=== PATIENT | male | born 1940 | race Caucasian/White ===

== ENCOUNTER 2023-10-08 23:19 | Inpatient (IN) | payer MEDICARE, OTHER ==
[~2023-10-08] VITALS: Ht 165.1 cm; Wt 75.6 kg
[2023-10-08 23:32] VITALS: PULSE 48; RESP 19
[2023-10-08] MEDS: ETOMIDATE 2MG/ML 10ML VIAL IV ONE (23:41)
[2023-10-08] MEDS: SODIUM CHLORIDE 0.9% 1,000 ML IV ONE (23:42)
[2023-10-08 23:43] LABS: BASOPHILS % 0.2 % (0.0-2.0); EOSINOPHILS % 0.2 % (0.0-5.0); HEMATOCRIT. 44.2 % (42.0-52.0); HEMOGLOBIN. 14.4 g/dL (14.0-18.0); MEAN CORPUSCULAR HEMOGLOBIN 31.6 pg (28.0-32.0); MEAN CORPUSCULAR HGB CONC 32.7 g/dL (31.0-37.0); MEAN CORPUSCULAR VOLUME 96.7 fL (80.0-94.0); MEAN PLATELET VOLUME 8.3 fl (7.4-10.4); MONOCYTES % 6.3 % (2.0-8.0); NEUTROPHILS % 68.3 % (40.0-76.0); PLATELET 181 x1000/uL (130-400); RED BLOOD CELL COUNT 4.57 mill/uL (4.7-6.1); RED CELL DISTRIBUTION WIDTH 14.8 % (11.6-14.6); WHITE BLOOD COUNT 13.9 x1000/uL (4.5-11.0)
[2023-10-08] MEDS ORDERED: EPINEPHRINE 5 MG in SODIUM CHLORIDE 0.9% 245 ML IV PRN (23:45)
[2023-10-08 23:54] LABS: PARTIAL THROMBOPLASTIN TIME 31.5 sec (23.4-31.0); PROTHROMBIN TIME 10.8 sec (9.6-11.0)
[2023-10-09] VITALS (65 sets, daily range): BP systolic 122–222; BP diastolic 40–69; PULSE 44–80; RESP 16–24; TEMP 98.5–98.6
[2023-10-09 00:04] LABS: LACTIC ACID 4.8 mmol/L (0.4-2.0)
[2023-10-09 00:06] LABS: ALANINE AMINOTRANSFERASE 84 IU/L (10-49); ALBUMIN 3.7 g/dL (3.2-4.8); ASPARTATE AMINOTRANSFERASE 81 IU/L (<34); BILIRUBIN TOTAL 1.1 mg/dL (0.1-1.0); CALCIUM 7.4 mg/dL (8.7-10.4); CARBON DIOXIDE 19 mEq/L (21-32); CHLORIDE 100 mEq/L (98-107); CREATININE 1.1 mg/dL (0.6-1.3); GLUCOSE 217 mg/dL (70-105); POTASSIUM 4.6 mEq/L (3.5-5.1); PROTEIN TOTAL 6.7 g/dL (6.0-8.3); SODIUM 130 mEq/L (136-145); UREA NITROGEN BLOOD 17 mg/dL (9-23)
[2023-10-09] MEDS: EPINEPHRINE 5 MG in SODIUM CHLORIDE 0.9% 245 ML IV PRN (00:12)
[2023-10-09 00:18] LABS: ETHANOL BLOOD < 10 mg/dL (<10); TROPONIN I HIGH SENSITIVITY 94 ng/L (3.0-53)
[2023-10-09] MEDS: PROPOFOL 10MG/ML 100ML 100 ML IV ONE (00:26)
[2023-10-09 01:10] LABS: BG BASE EXCESS -7.5 mmol/L (-2.0-2.0); BG CARBOXYHEMOGLOBIN 0.5 % (0.5-1.5); BG DEOXYHEMOGLOBIN 0.4 % (0.0-5.0); BG FRACTION INSPIRED OXYGEN 100; BG HCO3 ACT 21.8 mmol/L (22.0-26.0); BG METHEMOGLOBIN 0.2 % (0.0-1.5); BG OXYGEN SATURATION 99.6 % (92.0-98.5); BG OXYHEMOGLOBIN 98.9 % (94.0-97.0); BG PCO2 61.6 mmHg (35.0-45.0); BG PH 7.167 (7.350-7.450); BG PO2 302.7 mmHg (75.0-100.0); BG SAMPLE SITE RIGHT RADIAL; BG TOTAL HEMOGLOBIN 13.5 g/dL (12.0-18.0); BG VENT MODE VENT - AC
[2023-10-09] MEDS: VANCOMYCIN 1.5GM/250ML 250 ML IV SCH (02:25)
[2023-10-09] MEDS ORDERED: SODIUM CHLORIDE 0.9% 1,000 ML IV NR (02:30)
[2023-10-09] MEDS: PROPOFOL 10MG/ML 100ML 100 ML IV PRN (05:03)
[2023-10-09] MEDS: PIPERACILLIN/TAZO 3.375G/50ML 50 ML IV SCH (07:10)
[2023-10-09] MEDS: IOHEXOL-350 100 ML BOTTLE ONE (07:35)
[2023-10-09] MEDS ORDERED: ACETAMINOPHEN 325MG TABLET PO PRN (09:00)
[2023-10-09] MEDS ORDERED: EPINEPHRINE 10 MG in SODIUM CHLORIDE 0.9% 250 ML IV PRN (09:00)
[2023-10-09 09:01] LABS: BG BASE EXCESS 0.7 mmol/L (-2.0-2.0); BG CARBOXYHEMOGLOBIN 0.5 % (0.5-1.5); BG DEOXYHEMOGLOBIN 0.2 % (0.0-5.0); BG FRACTION INSPIRED OXYGEN 100; BG HCO3 ACT 24.7 mmol/L (22.0-26.0); BG METHEMOGLOBIN 0.4 % (0.0-1.5); BG OXYGEN SATURATION 99.8 % (92.0-98.5); BG OXYHEMOGLOBIN 98.9 % (94.0-97.0); BG PCO2 37.5 mmHg (35.0-45.0); BG PH 7.436 (7.350-7.450); BG PO2 442.1 mmHg (75.0-100.0); BG SAMPLE SITE LEFT RADIAL; BG TOTAL HEMOGLOBIN 14.4 g/dL (12.0-18.0); BG TOTAL RESPIRATORY RATE 16 b/min; BG VENT MODE VENT - AC
[2023-10-09] MEDS: PANTOPRAZOLE SODIUM 40 MG/VIAL IV SCH (10:21)
[2023-10-09] MEDS: DOPAMINE 800MG PREMIX (DOUBLE) 250 ML IV PRN (11:48)
[2023-10-09] MEDS: BLOOD SUGAR DIAGNOSTIC STRIP TEST SCH (12:00)
[2023-10-09] MEDS ORDERED: DEXTROSE 50% WATER 50ML SYRINGE IV PRN (12:30)
[2023-10-09] MEDS: PIPERACILLIN/TAZO 3.375G/50ML IV SCH (14:17)
[2023-10-09] MEDS: MIDAZOLAM 100MG/100ML PMX 100 ML IV PRN (14:23)
[2023-10-09] MEDS: FENTANYL 2500MCG/250ML PMX 250 ML IV PRN (14:24)
[2023-10-09] MEDS: INSULIN LISPRO 100 UNITS/ML SUBCUT SCH (17:00)
[2023-10-10] VITALS (93 sets, daily range): BP systolic 88–138; BP diastolic 40–75; PULSE 55–75; RESP 16–21; TEMP 97.4–99
[2023-10-10 05:17] LABS: BASOPHILS % 0.7 % (0.0-2.0); EOSINOPHILS % 0.1 % (0.0-5.0); HEMATOCRIT. 38.4 % (42.0-52.0); HEMOGLOBIN. 12.7 g/dL (14.0-18.0); LYMPHOCYTES % 13.1 % (20.0-50.0); MEAN CORPUSCULAR HGB CONC 33.1 g/dL (31.0-37.0); MEAN CORPUSCULAR VOLUME 93.8 fL (80.0-94.0); MEAN PLATELET VOLUME 8.3 fl (7.4-10.4); MONOCYTES % 7.7 % (2.0-8.0); NEUTROPHILS % 78.4 % (40.0-76.0); PLATELET 176 x1000/uL (130-400); RED BLOOD CELL COUNT 4.09 mill/uL (4.7-6.1); RED CELL DISTRIBUTION WIDTH 14.8 % (11.6-14.6); WHITE BLOOD COUNT 13.7 x1000/uL (4.5-11.0)
[2023-10-10 05:49] LABS: CALCIUM 8.2 mg/dL (8.7-10.4); CREATININE 1.2 mg/dL (0.6-1.3); POTASSIUM 3.4 mEq/L (3.5-5.1)
[2023-10-10] MEDS: ENOXAPARIN 40MG/0.4ML SYR SUBCUT SCH (08:28)
[2023-10-10 09:08] LABS: BG BASE EXCESS 0.9 mmol/L (-2.0-2.0); BG CARBOXYHEMOGLOBIN 0.3 % (0.5-1.5); BG DEOXYHEMOGLOBIN 0.8 % (0.0-5.0); BG FRACTION INSPIRED OXYGEN 60; BG HCO3 ACT 25.5 mmol/L (22.0-26.0); BG METHEMOGLOBIN 0.3 % (0.0-1.5); BG OXYGEN SATURATION 99.2 % (92.0-98.5); BG OXYHEMOGLOBIN 98.6 % (94.0-97.0); BG PCO2 40.5 mmHg (35.0-45.0); BG PH 7.417 (7.350-7.450); BG PO2 218.2 mmHg (75.0-100.0); BG SAMPLE SITE RIGHT RADIAL; BG TOTAL HEMOGLOBIN 13.7 g/dL (12.0-18.0); BG TOTAL RESPIRATORY RATE 16 b/min; BG VENT MODE VENT - AC
[2023-10-10] MEDS: POTASSIUM CHLORIDE 20MEQ TABLET SR PO NR (10:16)
[2023-10-10] MEDS: DEXT 5%/0.45% NACL 1000ML 1,000 ML IV SCH (13:20)
[2023-10-11] VITALS (109 sets, daily range): BP systolic 89–173; BP diastolic 42–101; PULSE 60–87; RESP 13–21; TEMP 98–98.6
[2023-10-11 05:44] LABS: BASOPHILS % 0.2 % (0.0-2.0); EOSINOPHILS % 0.4 % (0.0-5.0); HEMATOCRIT. 34.8 % (42.0-52.0); HEMOGLOBIN. 11.7 g/dL (14.0-18.0); LYMPHOCYTES % 12.1 % (20.0-50.0); MEAN CORPUSCULAR HEMOGLOBIN 31.9 pg (28.0-32.0); MEAN CORPUSCULAR HGB CONC 33.6 g/dL (31.0-37.0); MEAN CORPUSCULAR VOLUME 95.1 fL (80.0-94.0); MEAN PLATELET VOLUME 9.1 fl (7.4-10.4); MONOCYTES % 8.1 % (2.0-8.0); NEUTROPHILS % 79.2 % (40.0-76.0); PLATELET 165 x1000/uL (130-400); RED BLOOD CELL COUNT 3.66 mill/uL (4.7-6.1); RED CELL DISTRIBUTION WIDTH 14.7 % (11.6-14.6)
[2023-10-11 06:03] LABS: CALCIUM 8.2 mg/dL (8.7-10.4); CREATININE 1.2 mg/dL (0.6-1.3); POTASSIUM 3.3 mEq/L (3.5-5.1)
[2023-10-11] MEDS ORDERED: FLUO10TA34 MT (12:29)
[2023-10-11] MEDS ORDERED: FURO40TA5 PO (12:29)
[2023-10-11] MEDS ORDERED: POTA-354 MT (12:29)
[2023-10-11] MEDS ORDERED: BRIM15DR2 EACHEYE (12:29)
[2023-10-11] MEDS ORDERED: AZOPT EACHEYE (12:29)
[2023-10-11] MEDS ORDERED: CARV25TA47 MT (12:29)
[2023-10-11] MEDS ORDERED: DAPA10TA MT (12:29)
[2023-10-11] MEDS: POTASSIUM CHLORIDE 20MEQ/PACKET PO NR (13:47)
[2023-10-12] VITALS (72 sets, daily range): BP systolic 120–191; BP diastolic 47–80; PULSE 55–94; RESP 13–22; TEMP 97.5–99
[2023-10-12] MEDS: DEXMEDETOMIDINE 400 MCG/100 ML 100 ML IV PRN (10:48)
[2023-10-12] MEDS: HYDRALAZINE 20MG/ML VIAL IV PRN (12:48)
[2023-10-12 13:10] LABS: CALCIUM 8.1 mg/dL (8.7-10.4); CARBON DIOXIDE 25 mEq/L (21-32); CHLORIDE 105 mEq/L (98-107); CREATININE 0.9 mg/dL (0.6-1.3); GLUCOSE 127 mg/dL (70-105); POTASSIUM 3.6 mEq/L (3.5-5.1); SODIUM 136 mEq/L (136-145); UREA NITROGEN BLOOD 17 mg/dL (9-23)
[2023-10-13] VITALS (97 sets, daily range): BP systolic 104–181; BP diastolic 45–124; PULSE 46–106; RESP 13–32; TEMP 98.2–98.6
[2023-10-13 05:37] LABS: BASOPHILS % 0.3 % (0.0-2.0); EOSINOPHILS % 0.5 % (0.0-5.0); HEMOGLOBIN. 12.2 g/dL (14.0-18.0); LYMPHOCYTES % 13.2 % (20.0-50.0); MEAN CORPUSCULAR HEMOGLOBIN 32.1 pg (28.0-32.0); MEAN CORPUSCULAR HGB CONC 33.1 g/dL (31.0-37.0); MEAN PLATELET VOLUME 8.7 fl (7.4-10.4); MONOCYTES % 11.1 % (2.0-8.0); NEUTROPHILS % 74.9 % (40.0-76.0); PLATELET 203 x1000/uL (130-400); RED BLOOD CELL COUNT 3.81 mill/uL (4.7-6.1); RED CELL DISTRIBUTION WIDTH 14.9 % (11.6-14.6)
[2023-10-13 05:54] LABS: CALCIUM 8.7 mg/dL (8.7-10.4); CARBON DIOXIDE 22 mEq/L (21-32); CHLORIDE 107 mEq/L (98-107); GLUCOSE 123 mg/dL (70-105); SODIUM 137 mEq/L (136-145); UREA NITROGEN BLOOD 20 mg/dL (9-23)
[2023-10-13 10:04] LABS: BG BASE EXCESS -2.5 mmol/L (-2.0-2.0); BG CARBOXYHEMOGLOBIN 0.3 % (0.5-1.5); BG DEOXYHEMOGLOBIN 1.1 % (0.0-5.0); BG FRACTION INSPIRED OXYGEN 40; BG HCO3 ACT 23.6 mmol/L (22.0-26.0); BG METHEMOGLOBIN 0.4 % (0.0-1.5); BG OXYGEN SATURATION 98.9 % (92.0-98.5); BG OXYHEMOGLOBIN 98.2 % (94.0-97.0); BG PH 7.328 (7.350-7.450); BG PO2 153.8 mmHg (75.0-100.0); BG SAMPLE SITE RIGHT RADIAL; BG TOTAL HEMOGLOBIN 12.8 g/dL (12.0-18.0); BG VENT MODE VENT - CPAP
[2023-10-13] MEDS: ACETAMINOPHEN 325MG TABLET PO PRN (10:59)
[2023-10-13] MEDS: TAMSULOSIN HCL 0.4MG SR CAPSULE PO SCH (20:32)
[2023-10-14] VITALS (104 sets, daily range): BP systolic 106–234; BP diastolic 42–127; PULSE 46–104; RESP 14–27; TEMP 98.2–98.7
[2023-10-14 13:30] LABS: BG BASE EXCESS -2.3 mmol/L (-2.0-2.0); BG CARBOXYHEMOGLOBIN 0.3 % (0.5-1.5); BG DEOXYHEMOGLOBIN 1.1 % (0.0-5.0); BG FRACTION INSPIRED OXYGEN 40; BG METHEMOGLOBIN 0.3 % (0.0-1.5); BG OXYGEN SATURATION 98.9 % (92.0-98.5); BG OXYHEMOGLOBIN 98.3 % (94.0-97.0); BG PCO2 36.5 mmHg (35.0-45.0); BG PH 7.398 (7.350-7.450); BG PO2 133.4 mmHg (75.0-100.0); BG SAMPLE SITE RIGHT RADIAL; BG TOTAL HEMOGLOBIN 12.6 g/dL (12.0-18.0); BG TOTAL RESPIRATORY RATE 25 b/min; BG VENT MODE VENT - SIMV
[2023-10-14] MEDS: DOCUSATE SODIUM SUGAR FREE 100MG/10ML UDC NG SCH (18:27)
[2023-10-15] VITALS (110 sets, daily range): BP systolic 85–175; BP diastolic 37–111; PULSE 55–124; RESP 15–34; TEMP 97–98.4
[2023-10-15 07:17] LABS: HEMATOCRIT 31.7 % (42.0-52.0); HEMOGLOBIN 10.7 g/dL (14.0-18.0)
[2023-10-15] MEDS ORDERED: DOCUSATE SODIUM SUGAR FREE 100MG/10ML UDC NG SCH (09:00)
[2023-10-15] MEDS: LACTULOSE 20G/30ML UDC PO SCH (14:24)
[2023-10-15 17:35] LABS: CLARITY URINE CLOUDY (CLEAR); COLOR URINE RED (YELLOW); GLUCOSE URINE NEGATIVE (NEGATIVE); KETONES URINE NEGATIVE (NEGATIVE); LEUKOCYTE ESTERASE URINE 3+ (NEGATIVE); NITRITE URINE POSITIVE (NEGATIVE); OCCULT BLOOD URINE 1+ (NEGATIVE); PROTEIN URINE 1+ (NEGATIVE); SPECIFIC GRAVITY URINE 1.024 (1.005-1.030)
[2023-10-15 18:05] LABS: BACTERIA URINE 2+; RBC URINE 50-100 /hpf (0-2); SQUAMOUS EPITHELIAL CELL URINE 2+ /lpf (RARE/1+)
[2023-10-16] VITALS (93 sets, daily range): BP systolic 98–194; BP diastolic 49–100; PULSE 49–118; RESP 0–27; TEMP 97–99.1
[2023-10-16 05:22] LABS: BASOPHILS % 0.3 % (0.0-2.0); EOSINOPHILS % 0.3 % (0.0-5.0); HEMATOCRIT. 31.2 % (42.0-52.0); HEMOGLOBIN. 10.3 g/dL (14.0-18.0); LYMPHOCYTES % 15.2 % (20.0-50.0); MEAN CORPUSCULAR HGB CONC 33.1 g/dL (31.0-37.0); MEAN CORPUSCULAR VOLUME 96.9 fL (80.0-94.0); MEAN PLATELET VOLUME 8.2 fl (7.4-10.4); MONOCYTES % 12.9 % (2.0-8.0); NEUTROPHILS % 71.3 % (40.0-76.0); PLATELET 253 x1000/uL (130-400); RED BLOOD CELL COUNT 3.22 mill/uL (4.7-6.1); WHITE BLOOD COUNT 6.6 x1000/uL (4.5-11.0)
[2023-10-16 05:49] LABS: CALCIUM 8.1 mg/dL (8.7-10.4); CARBON DIOXIDE 22 mEq/L (21-32); CHLORIDE 109 mEq/L (98-107); CREATININE 0.9 mg/dL (0.6-1.3); GLUCOSE 148 mg/dL (70-105); POTASSIUM 3.7 mEq/L (3.5-5.1); SODIUM 137 mEq/L (136-145); UREA NITROGEN BLOOD 16 mg/dL (9-23)
[2023-10-16 05:58] LABS: INR 0.9; PROTHROMBIN TIME 10.5 sec (9.6-11.0)
[2023-10-16 09:08] LABS: BG BASE EXCESS -2.7 mmol/L (-2.0-2.0); BG CARBOXYHEMOGLOBIN 0.3 % (0.5-1.5); BG DEOXYHEMOGLOBIN 11.1 % (0.0-5.0); BG FRACTION INSPIRED OXYGEN 40; BG HCO3 ACT 23.7 mmol/L (22.0-26.0); BG METHEMOGLOBIN 0.3 % (0.0-1.5); BG OXYGEN SATURATION 88.8 % (92.0-98.5); BG OXYHEMOGLOBIN 88.3 % (94.0-97.0); BG PCO2 47.9 mmHg (35.0-45.0); BG PH 7.312 (7.350-7.450); BG PO2 58.7 mmHg (75.0-100.0); BG SAMPLE SITE RIGHT RADIAL; BG TOTAL HEMOGLOBIN 10.7 g/dL (12.0-18.0); BG VENT MODE VENT - SIMV
[2023-10-16 12:26] LABS: BG CARBOXYHEMOGLOBIN 0.3 % (0.5-1.5); BG DEOXYHEMOGLOBIN 1.1 % (0.0-5.0); BG FRACTION INSPIRED OXYGEN 50; BG HCO3 ACT 23.6 mmol/L (22.0-26.0); BG METHEMOGLOBIN 0.3 % (0.0-1.5); BG OXYGEN SATURATION 98.9 % (92.0-98.5); BG OXYHEMOGLOBIN 98.3 % (94.0-97.0); BG PCO2 43.6 mmHg (35.0-45.0); BG PH 7.351 (7.350-7.450); BG PO2 173.3 mmHg (75.0-100.0); BG SAMPLE SITE RIGHT RADIAL; BG TOTAL HEMOGLOBIN 11.4 g/dL (12.0-18.0); BG VENT MODE VENT - AC/PRVC
[2023-10-16] MEDS: FUROSEMIDE 40MG/4ML VIAL IVP SCH (13:12)
[2023-10-16] MEDS: CEFTRIAXONE 1GM/50ML 50 ML IV SCH (13:12)
[2023-10-16] MEDS: IPRATROPIUM/ALBUTEROL 0.5-3(2.5)MG/3ML NEB HHN SCH (14:23)
[2023-10-17] VITALS (120 sets, daily range): BP systolic 73–242; BP diastolic 44–195; PULSE 48–149; RESP 12–32; TEMP 97–98.4
[2023-10-17 05:13] LABS: BASOPHILS % 0.2 % (0.0-2.0); EOSINOPHILS % 0.6 % (0.0-5.0); HEMATOCRIT. 30.7 % (42.0-52.0); HEMOGLOBIN. 10.4 g/dL (14.0-18.0); LYMPHOCYTES % 21.6 % (20.0-50.0); MEAN CORPUSCULAR HEMOGLOBIN 32.4 pg (28.0-32.0); MEAN CORPUSCULAR VOLUME 95.4 fL (80.0-94.0); MEAN PLATELET VOLUME 8.2 fl (7.4-10.4); MONOCYTES % 12.9 % (2.0-8.0); NEUTROPHILS % 64.7 % (40.0-76.0); PLATELET 243 x1000/uL (130-400); RED BLOOD CELL COUNT 3.22 mill/uL (4.7-6.1); RED CELL DISTRIBUTION WIDTH 15.1 % (11.6-14.6); WHITE BLOOD COUNT 6.8 x1000/uL (4.5-11.0)
[2023-10-17 05:34] LABS: CALCIUM 8.3 mg/dL (8.7-10.4); CREATININE 1.2 mg/dL (0.6-1.3); POTASSIUM 4.4 mEq/L (3.5-5.1)
[2023-10-17 08:59] LABS: BG BASE EXCESS -2.9 mmol/L (-2.0-2.0); BG CARBOXYHEMOGLOBIN 0.3 % (0.5-1.5); BG DEOXYHEMOGLOBIN 0.9 % (0.0-5.0); BG FRACTION INSPIRED OXYGEN 50; BG HCO3 ACT 22.3 mmol/L (22.0-26.0); BG METHEMOGLOBIN 0.3 % (0.0-1.5); BG OXYGEN SATURATION 99.1 % (92.0-98.5); BG OXYHEMOGLOBIN 98.5 % (94.0-97.0); BG PCO2 40.2 mmHg (35.0-45.0); BG PH 7.362 (7.350-7.450); BG PO2 188.8 mmHg (75.0-100.0); BG SAMPLE SITE RIGHT RADIAL; BG TOTAL HEMOGLOBIN 10.6 g/dL (12.0-18.0); BG VENT MODE VENT - AC/PRVC
[2023-10-17] MEDS: METHYLPREDNISOLONE SOD SUCC 40MG/ML (ACT-O-VIAL) IV SCH (12:13)
[2023-10-17] MEDS: PROPOFOL 10MG/ML 100ML 100 ML IV PRN (13:01)
[2023-10-17 14:10] LABS: BG BASE EXCESS -7.8 mmol/L (-2.0-2.0); BG CARBOXYHEMOGLOBIN 0.3 % (0.5-1.5); BG DEOXYHEMOGLOBIN 0.4 % (0.0-5.0); BG FRACTION INSPIRED OXYGEN 100; BG HCO3 ACT 20.2 mmol/L (22.0-26.0); BG METHEMOGLOBIN 0.2 % (0.0-1.5); BG OXYGEN SATURATION 99.6 % (92.0-98.5); BG OXYHEMOGLOBIN 99.1 % (94.0-97.0); BG PCO2 51.4 mmHg (35.0-45.0); BG PH 7.212 (7.350-7.450); BG PO2 398.6 mmHg (75.0-100.0); BG SAMPLE SITE RIGHT RADIAL; BG TOTAL HEMOGLOBIN 12.9 g/dL (12.0-18.0); BG VENT MODE VENT - AC/PRVC
[2023-10-17 18:20] LABS: BG BASE EXCESS -5.2 mmol/L (-2.0-2.0); BG CARBOXYHEMOGLOBIN 0.3 % (0.5-1.5); BG DEOXYHEMOGLOBIN 1.6 % (0.0-5.0); BG FRACTION INSPIRED OXYGEN 50; BG HCO3 ACT 21.1 mmol/L (22.0-26.0); BG METHEMOGLOBIN 0.4 % (0.0-1.5); BG OXYGEN SATURATION 98.4 % (92.0-98.5); BG OXYHEMOGLOBIN 97.7 % (94.0-97.0); BG PH 7.299 (7.350-7.450); BG PO2 133.5 mmHg (75.0-100.0); BG SAMPLE SITE RIGHT RADIAL; BG TOTAL HEMOGLOBIN 11.9 g/dL (12.0-18.0); BG TOTAL RESPIRATORY RATE 28 b/min; BG VENT MODE VENT - AC/PRVC
[2023-10-17] MEDS: NOREPINEPHRINE 8MG/250ML PMX 250 ML IV PRN (20:45)
[2023-10-18] VITALS (107 sets, daily range): BP systolic 98–183; BP diastolic 43–129; PULSE 63–112; RESP 16–28; TEMP 98–98.8
[2023-10-18 05:45] LABS: BASOPHILS % 0.1 % (0.0-2.0); HEMATOCRIT. 28.6 % (42.0-52.0); HEMOGLOBIN. 9.6 g/dL (14.0-18.0); LYMPHOCYTES % 9.4 % (20.0-50.0); MEAN CORPUSCULAR HEMOGLOBIN 32.5 pg (28.0-32.0); MEAN CORPUSCULAR HGB CONC 33.7 g/dL (31.0-37.0); MEAN CORPUSCULAR VOLUME 96.4 fL (80.0-94.0); MEAN PLATELET VOLUME 8.3 fl (7.4-10.4); MONOCYTES % 6.2 % (2.0-8.0); NEUTROPHILS % 84.3 % (40.0-76.0); PLATELET 298 x1000/uL (130-400); RED BLOOD CELL COUNT 2.96 mill/uL (4.7-6.1); WHITE BLOOD COUNT 8.5 x1000/uL (4.5-11.0)
[2023-10-18 06:10] LABS: CALCIUM 8.2 mg/dL (8.7-10.4); CARBON DIOXIDE 22 mEq/L (21-32); CHLORIDE 107 mEq/L (98-107); CREATININE 1.4 mg/dL (0.6-1.3); GLUCOSE 147 mg/dL (70-105); PHOSPHORUS 3.1 mg/dL (2.5-4.9); POTASSIUM 4.4 mEq/L (3.5-5.1); SODIUM 134 mEq/L (136-145); TRIGLYCERIDE 110 mg/dL (0-150); UREA NITROGEN BLOOD 27 mg/dL (9-23)
[2023-10-18 09:46] LABS: BG CARBOXYHEMOGLOBIN 0.3 % (0.5-1.5); BG DEOXYHEMOGLOBIN 1.1 % (0.0-5.0); BG FRACTION INSPIRED OXYGEN 50; BG HCO3 ACT 19.7 mmol/L (22.0-26.0); BG METHEMOGLOBIN 0.3 % (0.0-1.5); BG OXYGEN SATURATION 98.9 % (92.0-98.5); BG OXYHEMOGLOBIN 98.3 % (94.0-97.0); BG PCO2 35.3 mmHg (35.0-45.0); BG PH 7.365 (7.350-7.450); BG PO2 153.7 mmHg (75.0-100.0); BG SAMPLE SITE RIGHT RADIAL; BG TOTAL HEMOGLOBIN 10.9 g/dL (12.0-18.0); BG TOTAL RESPIRATORY RATE 20 b/min; BG VENT MODE PRVC
[2023-10-19] VITALS (99 sets, daily range): BP systolic 97–173; BP diastolic 49–111; PULSE 67–102; RESP 11–28; TEMP 98–99.1
[2023-10-19 06:21] LABS: HEMATOCRIT. 27.7 % (42.0-52.0); HEMOGLOBIN. 9.3 g/dL (14.0-18.0); MEAN CORPUSCULAR HEMOGLOBIN 32.3 pg (28.0-32.0); MEAN CORPUSCULAR HGB CONC 33.7 g/dL (31.0-37.0); MEAN CORPUSCULAR VOLUME 95.9 fL (80.0-94.0); PLATELET 356 x1000/uL (130-400); RED BLOOD CELL COUNT 2.89 mill/uL (4.7-6.1); WHITE BLOOD COUNT 8.6 x1000/uL (4.5-11.0)
[2023-10-19 06:29] LABS: DIFFERENTIAL COMMENT 1
[2023-10-19 06:30] LABS: CALCIUM 8.1 mg/dL (8.7-10.4); CARBON DIOXIDE 26 mEq/L (21-32); CHLORIDE 109 mEq/L (98-107); CREATININE 1.1 mg/dL (0.6-1.3); GLUCOSE 161 mg/dL (70-105); POTASSIUM 4.3 mEq/L (3.5-5.1); SODIUM 141 mEq/L (136-145); TRIGLYCERIDE 109 mg/dL (0-150); UREA NITROGEN BLOOD 27 mg/dL (9-23)
[2023-10-19 09:37] LABS: BG BASE EXCESS -2.8 mmol/L (-2.0-2.0); BG CARBOXYHEMOGLOBIN 0.3 % (0.5-1.5); BG DEOXYHEMOGLOBIN 1.1 % (0.0-5.0); BG FRACTION INSPIRED OXYGEN 50; BG HCO3 ACT 21.6 mmol/L (22.0-26.0); BG METHEMOGLOBIN 0.3 % (0.0-1.5); BG OXYGEN SATURATION 98.9 % (92.0-98.5); BG OXYHEMOGLOBIN 98.3 % (94.0-97.0); BG PCO2 36.5 mmHg (35.0-45.0); BG PH 7.391 (7.350-7.450); BG PO2 144.4 mmHg (75.0-100.0); BG SAMPLE SITE RIGHT RADIAL; BG TOTAL HEMOGLOBIN 11.7 g/dL (12.0-18.0); BG VENT MODE PRVC-AC
[2023-10-19] MEDS: PROPOFOL 10MG/ML 100ML 100 ML IV PRN (09:43)
[2023-10-19 10:04] LABS: PLATELET ESTIMATE NORMAL
[2023-10-20] VITALS (102 sets, daily range): BP systolic 80–188; BP diastolic 41–147; PULSE 63–109; RESP 9–26; TEMP 98–98.9
[2023-10-20] MEDS: PROPOFOL 10MG/ML 100ML 100 ML IV PRN (07:39)
[2023-10-20] MEDS: AMLODIPINE 10MG TABLET PO SCH (09:32)
[2023-10-20] MEDS ORDERED: PROPOFOL 10MG/ML 100ML 100 ML IV PRN (21:00)
[2023-10-21] VITALS (81 sets, daily range): BP systolic 132–153; BP diastolic 48–122; PULSE 58–83; RESP 9–24; TEMP 97.6–99.1
[2023-10-21] MEDS: IPRATROPIUM/ALBUTEROL 0.5-3(2.5)MG/3ML NEB HHN PRN (00:27)
[2023-10-21 05:10] LABS: HEMATOCRIT. 29.4 % (42.0-52.0); HEMOGLOBIN. 9.9 g/dL (14.0-18.0); MEAN CORPUSCULAR HEMOGLOBIN 31.9 pg (28.0-32.0); MEAN CORPUSCULAR HGB CONC 33.7 g/dL (31.0-37.0); MEAN CORPUSCULAR VOLUME 94.6 fL (80.0-94.0); MEAN PLATELET VOLUME 7.9 fl (7.4-10.4); PLATELET 440 x1000/uL (130-400); RED BLOOD CELL COUNT 3.11 mill/uL (4.7-6.1); RED CELL DISTRIBUTION WIDTH 15.3 % (11.6-14.6); WHITE BLOOD COUNT 8.5 x1000/uL (4.5-11.0)
[2023-10-21 05:14] LABS: CARBON DIOXIDE 27 mEq/L (21-32); CHLORIDE 108 mEq/L (98-107); POTASSIUM 4.7 mEq/L (3.5-5.1); SODIUM 142 mEq/L (136-145)
[2023-10-21 05:15] LABS: CALCIUM 8.1 mg/dL (8.7-10.4); CREATININE 0.9 mg/dL (0.6-1.3); GLUCOSE 146 mg/dL (70-105); PHOSPHORUS 3.3 mg/dL (2.5-4.9); TRIGLYCERIDE 126 mg/dL (0-150); UREA NITROGEN BLOOD 37 mg/dL (9-23)
[2023-10-21 06:43] LABS: DIFFERENTIAL COMMENT 1
[2023-10-21 08:26] LABS: BG BASE EXCESS 2.5 mmol/L (-2.0-2.0); BG CARBOXYHEMOGLOBIN 0.3 % (0.5-1.5); BG DEOXYHEMOGLOBIN 1.2 % (0.0-5.0); BG FRACTION INSPIRED OXYGEN 50; BG HCO3 ACT 25.5 mmol/L (22.0-26.0); BG METHEMOGLOBIN 0.4 % (0.0-1.5); BG OXYGEN SATURATION 98.8 % (92.0-98.5); BG OXYHEMOGLOBIN 98.1 % (94.0-97.0); BG PCO2 33.4 mmHg (35.0-45.0); BG SAMPLE SITE RIGHT RADIAL; BG TOTAL HEMOGLOBIN 10.5 g/dL (12.0-18.0); BG VENT MODE VENT - AC/PRVC
[2023-10-21 16:48] LABS: PLATELET ESTIMATE SLIGHTLY INCREASED
[2023-10-21 16:49] LABS: ANISOCYTOSIS 1+
[2023-10-21] MEDS: PROPOFOL 10MG/ML 100ML 100 ML IV PRN (23:40)
[2023-10-22] VITALS (91 sets, daily range): BP systolic 128–169; BP diastolic 46–82; PULSE 50–108; RESP 8–37; TEMP 97.6–98.8
[2023-10-23] VITALS (83 sets, daily range): BP systolic 126–171; BP diastolic 47–121; PULSE 52–90; RESP 13–28; TEMP 97.3–99.7
[2023-10-23] MEDS: PROPOFOL 10MG/ML 100ML 100 ML IV PRN (01:43)
[2023-10-23] MEDS: HYDROCODONE/ACETAMINOPHEN 7.5/325MG TABLET PO NR (17:16)
[2023-10-23 17:43] LABS: HEMATOCRIT. 32.7 % (42.0-52.0); HEMOGLOBIN. 10.6 g/dL (14.0-18.0); MEAN CORPUSCULAR HEMOGLOBIN 31.2 pg (28.0-32.0); MEAN CORPUSCULAR HGB CONC 32.6 g/dL (31.0-37.0); MEAN CORPUSCULAR VOLUME 95.7 fL (80.0-94.0); MEAN PLATELET VOLUME 8.1 fl (7.4-10.4); PLATELET 489 x1000/uL (130-400); RED BLOOD CELL COUNT 3.41 mill/uL (4.7-6.1); RED CELL DISTRIBUTION WIDTH 15.1 % (11.6-14.6); WHITE BLOOD COUNT 14.3 x1000/uL (4.5-11.0)
[2023-10-23 17:45] LABS: DIFFERENTIAL COMMENT 1
[2023-10-23 18:03] LABS: CARBON DIOXIDE 26 mEq/L (21-32); CHLORIDE 107 mEq/L (98-107); GLUCOSE 148 mg/dL (70-105); POTASSIUM 3.7 mEq/L (3.5-5.1); SODIUM 143 mEq/L (136-145); UREA NITROGEN BLOOD 40 mg/dL (9-23)
[2023-10-23 18:30] LABS: PLATELET ESTIMATE INCREASED
[2023-10-24] VITALS (35 sets, daily range): BP systolic 91–203; BP diastolic 32–150; PULSE 59–109; RESP 17–30; TEMP 97.8–98.7
[2023-10-24 05:26] LABS: HEMATOCRIT. 31.2 % (42.0-52.0); HEMOGLOBIN. 10.4 g/dL (14.0-18.0); MEAN CORPUSCULAR HGB CONC 33.3 g/dL (31.0-37.0); MEAN CORPUSCULAR VOLUME 95.9 fL (80.0-94.0); MEAN PLATELET VOLUME 7.9 fl (7.4-10.4); PLATELET 430 x1000/uL (130-400); RED BLOOD CELL COUNT 3.25 mill/uL (4.7-6.1); RED CELL DISTRIBUTION WIDTH 14.9 % (11.6-14.6); WHITE BLOOD COUNT 11.5 x1000/uL (4.5-11.0)
[2023-10-24 05:40] LABS: ALANINE AMINOTRANSFERASE 63 IU/L (10-49); ALBUMIN 3.4 g/dL (3.2-4.8); ASPARTATE AMINOTRANSFERASE 36 IU/L (<34); CALCIUM 7.9 mg/dL (8.7-10.4); CARBON DIOXIDE 27 mEq/L (21-32); CHLORIDE 108 mEq/L (98-107); CREATININE 0.9 mg/dL (0.6-1.3); GLUCOSE 158 mg/dL (70-105); POTASSIUM 3.7 mEq/L (3.5-5.1); PROTEIN TOTAL 5.7 g/dL (6.0-8.3); SODIUM 143 mEq/L (136-145); UREA NITROGEN BLOOD 40 mg/dL (9-23)
[2023-10-24 07:20] LABS: DIFFERENTIAL COMMENT 1
[2023-10-24] MEDS: HYDRALAZINE HCL 100MG TABLET PO NR (10:05)
[2023-10-24] MEDS ORDERED: HEPARIN 1000 UNITS/ML 10ML ONE ×2 (11:24→12:38)
[2023-10-24 11:25] LABS: CLARITY URINE CLOUDY (CLEAR); COLOR URINE YELLOW (YELLOW); GLUCOSE URINE NEGATIVE (NEGATIVE); KETONES URINE NEGATIVE (NEGATIVE); LEUKOCYTE ESTERASE URINE 2+ (NEGATIVE); NITRITE URINE NEGATIVE (NEGATIVE); OCCULT BLOOD URINE 3+ (NEGATIVE); PROTEIN URINE TRACE (NEGATIVE)
[2023-10-24] MEDS ORDERED: LIDOCAINE HCL 1% 20ML VIAL (Pyxis) INJ ONE (11:25)
[2023-10-24] MEDS ORDERED: IODIXANOL 320MG/ML 100 ML BOTTLE IV ONE (11:25)
[2023-10-24] MEDS ORDERED: DIPHENHYDRAMINE 50MG/ML VIAL ONE (11:26)
[2023-10-24] MEDS ORDERED: FENTANYL CITRATE/PF 50MCG/ML 2ML VIAL ONE ×2 (11:27→12:29)
[2023-10-24] MEDS ORDERED: MIDAZOLAM HCL 2 MG/2 ML VIAL ONE ×2 (11:27→12:30)
[2023-10-24 11:41] LABS: BACTERIA URINE 1+; SQUAMOUS EPITHELIAL CELL URINE NONE SEEN /lpf (RARE/1+); YEAST URINE NONE SEEN
[2023-10-24] MEDS ORDERED: ATROPINE SULFATE 1MG/10ML SYR ONE (12:26)
[2023-10-24] MEDS ORDERED: ASPIRIN 325MG TABLET ONE (13:02)
[2023-10-24] MEDS ORDERED: CLOPIDOGREL 75MG TABLET ONE (13:02)
[2023-10-24] MEDS ORDERED: ATROPINE SULFATE 1MG/10ML SYR IV PRN (13:45)
[2023-10-24] MEDS ORDERED: ACETAMINOPHEN 325MG TABLET PO PRN (13:45)
[2023-10-24] MEDS: HYDRALAZINE 20MG/ML VIAL IV PRN (14:34)
[2023-10-24] MEDS ORDERED: NALOXONE HCL 0.4MG/ML VIAL IV PRN (15:00)
[2023-10-24] MEDS: HYDROCODONE/ACETAMINOPHEN 5/325MG TABLET PO PRN (15:12)
[2023-10-24] MEDS ORDERED: HYDRALAZINE HCL 100MG TABLET PO SCH (21:00)
[2023-10-24] MEDS: HYDRALAZINE HCL 50MG TABLET PO SCH (21:59)
[2023-10-25] VITALS (22 sets, daily range): BP systolic 124–174; BP diastolic 49–118; PULSE 66–94; RESP 17–32; TEMP 97.6–98.5
[2023-10-25 00:18] LABS: PLATELET ESTIMATE INCREASED
[2023-10-25 07:43] LABS: HEMATOCRIT. 32.5 % (42.0-52.0); HEMOGLOBIN. 10.9 g/dL (14.0-18.0); MEAN CORPUSCULAR HEMOGLOBIN 31.3 pg (28.0-32.0); MEAN CORPUSCULAR HGB CONC 33.4 g/dL (31.0-37.0); MEAN CORPUSCULAR VOLUME 93.6 fL (80.0-94.0); MEAN PLATELET VOLUME 8.2 fl (7.4-10.4); PLATELET 452 x1000/uL (130-400); RED BLOOD CELL COUNT 3.47 mill/uL (4.7-6.1); RED CELL DISTRIBUTION WIDTH 15.1 % (11.6-14.6); WHITE BLOOD COUNT 13.1 x1000/uL (4.5-11.0)
[2023-10-25 08:10] LABS: CALCIUM 8.2 mg/dL (8.7-10.4); CARBON DIOXIDE 26 mEq/L (21-32); CHLORIDE 108 mEq/L (98-107); CREATININE 0.8 mg/dL (0.6-1.3); GLUCOSE 157 mg/dL (70-105); POTASSIUM 3.8 mEq/L (3.5-5.1); SODIUM 142 mEq/L (136-145); UREA NITROGEN BLOOD 32 mg/dL (9-23)
[2023-10-25 08:16] LABS: DIFFERENTIAL COMMENT 1
[2023-10-25] MEDS: CLOPIDOGREL 75MG TABLET PO SCH (09:00)
[2023-10-25] MEDS: ASPIRIN 81MG TABLET PO SCH (09:59)
[2023-10-25] MEDS: HYDRALAZINE HCL 100MG TABLET PO SCH (14:00)
[2023-10-25 16:31] LABS: ANISOCYTOSIS 1+; PLATELET ESTIMATE INCREASED
[2023-10-25] MEDS: METOCLOPRAMIDE HCL 10MG/2ML VIAL IV SCH (18:09)
[2023-10-26] VITALS (21 sets, daily range): BP systolic 123–154; BP diastolic 48–124; PULSE 62–117; RESP 15–28; TEMP 96.8–97.5
[2023-10-26 07:25] LABS: HEMATOCRIT. 30.1 % (42.0-52.0); HEMOGLOBIN. 10.1 g/dL (14.0-18.0); MEAN CORPUSCULAR HEMOGLOBIN 31.3 pg (28.0-32.0); MEAN CORPUSCULAR HGB CONC 33.5 g/dL (31.0-37.0); MEAN CORPUSCULAR VOLUME 93.5 fL (80.0-94.0); MEAN PLATELET VOLUME 8.1 fl (7.4-10.4); PLATELET 396 x1000/uL (130-400); RED BLOOD CELL COUNT 3.22 mill/uL (4.7-6.1); RED CELL DISTRIBUTION WIDTH 14.7 % (11.6-14.6); WHITE BLOOD COUNT 12.7 x1000/uL (4.5-11.0)
[2023-10-26 07:26] LABS: DIFFERENTIAL COMMENT 1
[2023-10-26 07:48] LABS: CALCIUM 8.4 mg/dL (8.7-10.4); CARBON DIOXIDE 27 mEq/L (21-32); CHLORIDE 109 mEq/L (98-107); CREATININE 0.8 mg/dL (0.6-1.3); GLUCOSE 149 mg/dL (70-105); POTASSIUM 3.9 mEq/L (3.5-5.1); SODIUM 143 mEq/L (136-145); UREA NITROGEN BLOOD 36 mg/dL (9-23)
[2023-10-26] MEDS: RISPERIDONE 0.5MG TABLET PO SCH (11:28)
[2023-10-26 15:56] LABS: BG CARBOXYHEMOGLOBIN 0.3 % (0.5-1.5); BG FRACTION INSPIRED OXYGEN 40; BG HCO3 ACT 26.8 mmol/L (22.0-26.0); BG METHEMOGLOBIN 0.3 % (0.0-1.5); BG OXYHEMOGLOBIN 98.4 % (94.0-97.0); BG PCO2 30.2 mmHg (35.0-45.0); BG PH 7.566 (7.350-7.450); BG PO2 179.6 mmHg (75.0-100.0); BG SAMPLE SITE RIGHT RADIAL; BG TOTAL HEMOGLOBIN 11.3 g/dL (12.0-18.0); BG VENT MODE VENT - AC
[2023-10-26 16:12] LABS: PLATELET ESTIMATE NORMAL
[2023-10-27] VITALS (17 sets, daily range): BP systolic 114–164; BP diastolic 46–94; PULSE 64–94; RESP 17–34; TEMP 97.2–98.5
[2023-10-27 07:11] LABS: CALCIUM 8.7 mg/dL (8.7-10.4); CARBON DIOXIDE 27 mEq/L (21-32); CHLORIDE 109 mEq/L (98-107); CREATININE 0.8 mg/dL (0.6-1.3); GLUCOSE 161 mg/dL (70-105); POTASSIUM 3.8 mEq/L (3.5-5.1); SODIUM 144 mEq/L (136-145); UREA NITROGEN BLOOD 34 mg/dL (9-23)
[2023-10-27 07:13] LABS: HEMATOCRIT. 30.7 % (42.0-52.0); HEMOGLOBIN. 10.2 g/dL (14.0-18.0); MEAN CORPUSCULAR HEMOGLOBIN 31.4 pg (28.0-32.0); MEAN CORPUSCULAR HGB CONC 33.3 g/dL (31.0-37.0); MEAN CORPUSCULAR VOLUME 94.4 fL (80.0-94.0); MEAN PLATELET VOLUME 8.6 fl (7.4-10.4); PLATELET 416 x1000/uL (130-400); RED BLOOD CELL COUNT 3.26 mill/uL (4.7-6.1); RED CELL DISTRIBUTION WIDTH 14.6 % (11.6-14.6); WHITE BLOOD COUNT 15.3 x1000/uL (4.5-11.0)
[2023-10-27 07:21] LABS: DIFFERENTIAL COMMENT 1
[2023-10-27 14:51] LABS: PLATELET ESTIMATE INCREASED
[2023-10-27] MEDS ORDERED: BISACODYL 10MG SUPP PR PRN (17:30)
[2023-10-27] MEDS: LACTULOSE 20G/30ML UDC PO NR (18:35)
[2023-10-27] MEDS: METOCLOPRAMIDE HCL 10MG/2ML VIAL IV SCH (18:35)
[2023-10-27] MEDS ORDERED: LACTULOSE 20G/30ML UDC PO PRN (21:00)
[2023-10-28] VITALS (17 sets, daily range): BP systolic 112–140; BP diastolic 44–70; PULSE 58–95; RESP 17–27; TEMP 97–97.7
[2023-10-28 06:49] LABS: HEMATOCRIT. 27.7 % (42.0-52.0); HEMOGLOBIN. 9.3 g/dL (14.0-18.0); MEAN CORPUSCULAR HEMOGLOBIN 31.6 pg (28.0-32.0); MEAN CORPUSCULAR HGB CONC 33.7 g/dL (31.0-37.0); MEAN CORPUSCULAR VOLUME 93.7 fL (80.0-94.0); MEAN PLATELET VOLUME 8.3 fl (7.4-10.4); PLATELET 349 x1000/uL (130-400); RED BLOOD CELL COUNT 2.96 mill/uL (4.7-6.1); RED CELL DISTRIBUTION WIDTH 14.8 % (11.6-14.6)
[2023-10-28 07:23] LABS: CALCIUM 8.4 mg/dL (8.7-10.4); CARBON DIOXIDE 25 mEq/L (21-32); CHLORIDE 109 mEq/L (98-107); CREATININE 0.9 mg/dL (0.6-1.3); GLUCOSE 202 mg/dL (70-105); POTASSIUM 3.6 mEq/L (3.5-5.1); SODIUM 142 mEq/L (136-145); UREA NITROGEN BLOOD 42 mg/dL (9-23)
[2023-10-28 08:34] LABS: DIFFERENTIAL COMMENT 1
[2023-10-28] MEDS: DOCUSATE SODIUM SUGAR FREE 100MG/10ML UDC NG SCH (09:57)
[2023-10-28 19:22] LABS: PLATELET ESTIMATE NORMAL
[2023-10-28] MEDS: METOCLOPRAMIDE HCL 10MG/2ML VIAL IV SCH (19:42)
[2023-10-28] MEDS: ONDANSETRON HCL 4MG/2ML INJ IV PRN (21:57)
[2023-10-29] VITALS (21 sets, daily range): BP systolic 87–143; BP diastolic 50–97; PULSE 83–136; RESP 22–35; TEMP 97.6–98.8
[2023-10-29 06:30] LABS: HEMATOCRIT. 30.7 % (42.0-52.0); HEMOGLOBIN. 10.2 g/dL (14.0-18.0); MEAN CORPUSCULAR HEMOGLOBIN 31.2 pg (28.0-32.0); MEAN CORPUSCULAR HGB CONC 33.1 g/dL (31.0-37.0); MEAN CORPUSCULAR VOLUME 94.2 fL (80.0-94.0); MEAN PLATELET VOLUME 8.2 fl (7.4-10.4); PLATELET 406 x1000/uL (130-400); RED BLOOD CELL COUNT 3.26 mill/uL (4.7-6.1); WHITE BLOOD COUNT 16.2 x1000/uL (4.5-11.0)
[2023-10-29 06:38] LABS: DIFFERENTIAL COMMENT 1
[2023-10-29 06:59] LABS: CALCIUM 8.3 mg/dL (8.7-10.4); CARBON DIOXIDE 27 mEq/L (21-32); CHLORIDE 108 mEq/L (98-107); CREATININE 0.8 mg/dL (0.6-1.3); GLUCOSE 173 mg/dL (70-105); SODIUM 143 mEq/L (136-145); UREA NITROGEN BLOOD 33 mg/dL (9-23)
[2023-10-29] MEDS ORDERED: METOPROLOL TARTRATE 5MG/5ML VIAL IV NR (11:15)
[2023-10-29] MEDS ORDERED: CEFEPIME 2GM IN DEXT 5% 100ML IV SCH (16:15)
[2023-10-29] MEDS ORDERED: CEFEPIME 1GM/50ML 50 ML IV SCH (17:30)
[2023-10-29 17:51] LABS: PLATELET ESTIMATE SLIGHTLY INCREASED
[2023-10-29] MEDS: CEFEPIME 1GM/50ML 50 ML IV SCH (22:20)
[2023-10-29] MEDS: METHYLPREDNISOLONE SOD SUCC 40MG/ML (ACT-O-VIAL) IV SCH (22:21)
[2023-10-29] MEDS: RISPERIDONE 0.5MG TABLET PO SCH (22:22)
[2023-10-30] VITALS (22 sets, daily range): BP systolic 102–148; BP diastolic 45–73; PULSE 63–102; RESP 19–28; TEMP 97.6–99.2
[2023-10-30 06:04] LABS: HEMOGLOBIN. 9.3 g/dL (14.0-18.0); MEAN CORPUSCULAR HEMOGLOBIN 31.6 pg (28.0-32.0); MEAN CORPUSCULAR HGB CONC 33.2 g/dL (31.0-37.0); MEAN CORPUSCULAR VOLUME 95.2 fL (80.0-94.0); MEAN PLATELET VOLUME 8.5 fl (7.4-10.4); PLATELET 332 x1000/uL (130-400); RED BLOOD CELL COUNT 2.94 mill/uL (4.7-6.1); WHITE BLOOD COUNT 15.6 x1000/uL (4.5-11.0)
[2023-10-30 06:27] LABS: CALCIUM 7.8 mg/dL (8.7-10.4); CARBON DIOXIDE 25 mEq/L (21-32); CHLORIDE 112 mEq/L (98-107); CREATININE 0.8 mg/dL (0.6-1.3); GLUCOSE 196 mg/dL (70-105); POTASSIUM 4.2 mEq/L (3.5-5.1); SODIUM 144 mEq/L (136-145); UREA NITROGEN BLOOD 30 mg/dL (9-23)
[2023-10-30 07:06] LABS: DIFFERENTIAL COMMENT 1
[2023-10-30 14:21] LABS: BG BASE EXCESS 3.7 mmol/L (-2.0-2.0); BG CARBOXYHEMOGLOBIN 0.3 % (0.5-1.5); BG DEOXYHEMOGLOBIN 1.4 % (0.0-5.0); BG FRACTION INSPIRED OXYGEN 40; BG HCO3 ACT 27.7 mmol/L (22.0-26.0); BG METHEMOGLOBIN 0.2 % (0.0-1.5); BG OXYGEN SATURATION 98.6 % (92.0-98.5); BG OXYHEMOGLOBIN 98.1 % (94.0-97.0); BG PH 7.459 (7.350-7.450); BG PO2 159.8 mmHg (75.0-100.0); BG SAMPLE SITE RIGHT RADIAL; BG TOTAL HEMOGLOBIN 11.3 g/dL (12.0-18.0); BG VENT MODE VENT - SIMV
[2023-10-30 16:15] LABS: PLATELET ESTIMATE NORMAL
[2023-10-30] MEDS ORDERED: CEFEPIME 2GM IN DEXT 5% 100ML IV SCH (17:15)
[2023-10-30] MEDS: CEFEPIME 2GM/100ML 100 ML IV SCH (18:36)
[2023-10-31] VITALS (19 sets, daily range): BP systolic 112–150; BP diastolic 49–71; PULSE 73–102; RESP 16–29; TEMP 97.4–97.8; O2SAT 95
[2023-10-31 07:34] LABS: CALCIUM 7.9 mg/dL (8.7-10.4); CARBON DIOXIDE 26 mEq/L (21-32); CHLORIDE 111 mEq/L (98-107); CREATININE 0.9 mg/dL (0.6-1.3); GLUCOSE 193 mg/dL (70-105); SODIUM 144 mEq/L (136-145); UREA NITROGEN BLOOD 30 mg/dL (9-23)
[2023-10-31 08:31] LABS: HEMATOCRIT. 29.2 % (42.0-52.0); HEMOGLOBIN. 9.5 g/dL (14.0-18.0); MEAN CORPUSCULAR HEMOGLOBIN 31.1 pg (28.0-32.0); MEAN CORPUSCULAR HGB CONC 32.6 g/dL (31.0-37.0); MEAN CORPUSCULAR VOLUME 95.3 fL (80.0-94.0); PLATELET 322 x1000/uL (130-400); RED BLOOD CELL COUNT 3.06 mill/uL (4.7-6.1); RED CELL DISTRIBUTION WIDTH 14.8 % (11.6-14.6)
[2023-10-31 08:41] LABS: DIFFERENTIAL COMMENT 1
[2023-10-31 11:50] LABS: BG BASE EXCESS 3.8 mmol/L (-2.0-2.0); BG CARBOXYHEMOGLOBIN 0.3 % (0.5-1.5); BG DEOXYHEMOGLOBIN 1.4 % (0.0-5.0); BG FRACTION INSPIRED OXYGEN 35; BG HCO3 ACT 27.5 mmol/L (22.0-26.0); BG METHEMOGLOBIN 0.2 % (0.0-1.5); BG OXYGEN SATURATION 98.6 % (92.0-98.5); BG OXYHEMOGLOBIN 98.1 % (94.0-97.0); BG PCO2 38.3 mmHg (35.0-45.0); BG PH 7.474 (7.350-7.450); BG PO2 130.4 mmHg (75.0-100.0); BG SAMPLE SITE RIGHT RADIAL; BG TOTAL HEMOGLOBIN 11.5 g/dL (12.0-18.0); BG VENT MODE VENT - CPAP
[2023-10-31 21:17] LABS: PLATELET ESTIMATE NORMAL
== END 2023-10-31 20:00 | DRG 4 ==
LOC: ER 23:19 → MICUNO 10-09 03:53 → EDBEDREQ 10-09 04:05 → EDBEDREQTM 10-09 04:05 → 5EST 10-24 16:22
PROVIDERS: ADMIT Internal Medicine; ATTEND Internal Medicine
PROC: 5A1955Z Respiratory Ventilation, Greater than 96 Consecutive Hours (ICD-10-PCS; 2023-10-08)
PROC: 0BH17EZ Insertion of Endotracheal Airway into Trachea, Via Natural or Artificial Opening (ICD-10-PCS; 2023-10-08)
PROC: 05HM33Z Insertion of Infusion Device into Right Internal Jugular Vein, Percutaneous Approach (ICD-10-PCS; 2023-10-08)
PROC: B543ZZA Ultrasonography of Right Jugular Veins, Guidance (ICD-10-PCS; 2023-10-08)
PROC: 0B110F4 Bypass Trachea to Cutaneous with Tracheostomy Device, Open Approach (ICD-10-PCS; 2023-10-22)
PROC: 027036Z Dilation of Coronary Artery, One Artery with Three Drug-eluting Intraluminal Devices, Percutaneous Approach (ICD-10-PCS; principal; 2023-10-24)
PROC: 4A023N7 Measurement of Cardiac Sampling and Pressure, Left Heart, Percutaneous Approach (ICD-10-PCS; 2023-10-24)
PROC: B211YZZ Fluoroscopy of Multiple Coronary Arteries using Other Contrast (ICD-10-PCS; 2023-10-24)
DX: A41.9 Sepsis, unspecified organism (principal); I46.9 Cardiac arrest, cause unspecified; J96.21 Acute and chronic respiratory failure with hypoxia; I21.4 Non-ST elevation (NSTEMI) myocardial infarction; R57.9 Shock, unspecified; E87.1 Hypo-osmolality and hyponatremia; D53.9 Nutritional anemia, unspecified; E11.9 Type 2 diabetes mellitus without complications; S22.31XA Fracture of one rib, right side, initial encounter for closed fracture; I47.20 Ventricular tachycardia, unspecified; I10 Essential (primary) hypertension; Z20.822 Contact with and (suspected) exposure to COVID-19; I49.3 Ventricular premature depolarization; B96.89 Other specified bacterial agents as the cause of diseases classified elsewhere; I25.10 Atherosclerotic heart disease of native coronary artery without angina pectoris; N39.0 Urinary tract infection, site not specified; R13.10 Dysphagia, unspecified; R31.9 Hematuria, unspecified; L76.22 Postprocedural hemorrhage of skin and subcutaneous tissue following other procedure; Z79.02 Long term (current) use of antithrombotics/antiplatelets; Z79.82 Long term (current) use of aspirin; X58.XXXA Exposure to other specified factors, initial encounter; Z93.1 Gastrostomy status; Y93.89 Activity, other specified; Y92.89 Other specified places as the place of occurrence of the external cause; Y99.8 Other external cause status; Y83.8 Other surgical procedures as the cause of abnormal reaction of the patient, or of later complication, without mention of misadventure at the time of the procedure; Y82.8 Other medical devices associated with adverse incidents
CPT/HCPCS: 31500; 36415; 36600; 71045; 71275; 74018; 80048; 80053; 80320; 81003; 82375; 82805; 82962; 83036; 83605; 83735; 83880; 84100; 84145; 84478; 84484; 85014; 85018; 85025; 85347; 87077; 87186; 87426; 87804; 92928; 93005; 93306; 93458; 94002; 94003; 94640; 97110; 97162; 97530; 99291; A6261; C1725; C1760; C1769; C1874 ×2; C1887; C1893; C9113; J0360; J0461; J0692; J0696; J1200; J1265; J1644; J1650; J1940; J2250; J2405; J2543; J2704; J2765; J2920; J3010; J3370; J3490; J7030; J7050; Q9957; Q9967; A4315; G0480